=== PATIENT | female | born 1985 | race Caucasian/White ===

== ENCOUNTER → 2019-05-04 | Outpatient (CLI) | payer OTHER | LOC: M.ULTRA 05-01 10:13 | DX: M79.89 Other specified soft tissue disorders (principal); M25.521 Pain in right elbow ==

== ENCOUNTER → 2020-07-08 | Outpatient (CLI) | payer OTHER ==
[2020-07-08 11:38] LABS: ABSOLUTE BASOPHILS 0.1 thou/uL (0.0-0.2); ABSOLUTE EOSINOPHILS 0.1 thou/uL (0.0-0.7); ABSOLUTE MONOCYTES 0.4 thou/uL (0.0-1.2); ABSOLUTE NEUTROPHILS 3.5 thou/uL (1.6-8.1); BASOPHILS 1.1 %; EOSINOPHILS 2.1 %; HEMATOCRIT 41.4 % (37.0-47.0); HEMOGLOBIN 14.1 gm/dL (12.0-15.0); LYMPHOCYTES 33.3 %; MCH 31.3 pg (26.0-34.0); MCHC 33.9 g/dL (28.0-37.0); MCV 92.3 fL (80.0-100.0); MPV 7.7 fl. (7.2-11.1); NUCLEATED RBCS 0 /100WBC; PLATELET COUNT* 198 thou/uL (150-400); POLYS 57.5 %; RBC 4.49 mil/uL (4.20-5.00); RDW-CV 12.4 % (10.5-14.5); WBC 6.1 thou/uL (4.0-11.0)
[2020-07-08 11:46] LABS: CALCIUM 9.4 mg/dL (8.5-10.1); CREATININE 0.8 mg/dL (0.6-1.3); POTASSIUM 3.9 mmol/L (3.5-5.1)
[2020-07-08 11:51] LABS: TOTAL BILIRUBIN 0.4 mg/dL (<0.1-1.0); TOTAL PROTEIN 7.3 g/dL (6.4-8.2)
== END ==
LOC: M.CT 11:14
PROVIDERS: ATTEND Nurse Practitioner
DX: R19.5 Other fecal abnormalities (principal); R35.0 Frequency of micturition; R82.998 Other abnormal findings in urine; R31.29 Other microscopic hematuria

== ENCOUNTER → 2020-07-19 | Outpatient (CLI) | payer OTHER | LOC: M.ULTRA 15:50 | PROVIDERS: ATTEND Nurse Practitioner | DX: R39.15 Urgency of urination (principal); R10.2 Pelvic and perineal pain; R31.29 Other microscopic hematuria; R30.0 Dysuria; Z87.42 Personal history of other diseases of the female genital tract; R23.3 Spontaneous ecchymoses; Z86.19 Personal history of other infectious and parasitic diseases ==

== ENCOUNTER 2021-01-16 08:58 | Emergency (ER) | payer OTHER ==
[~2021-01-16] VITALS: Ht 160 cm; Wt 55.8 kg
[2021-01-16] MEDS ORDERED: [UNRECOGNIZED DRUG - OTHER] (09:09)
[2021-01-16] MEDS ORDERED: HYDROCODON-ACE1 EAC7 PO (10:03)
[2021-01-16] MEDS ORDERED: FLEXERIL PO (10:03)
[2021-01-16 10:10] VITALS: BP 100/72
== END 2021-01-16 10:11 | disposition home or self-care (01) ==
LOC: M.ERS 08:58
DX: S16.1XXA Strain of muscle, fascia and tendon at neck level, initial encounter (principal); R51.9 Headache, unspecified; R11.0 Nausea; M54.6 Pain in thoracic spine; W22.8XXA Striking against or struck by other objects, initial encounter; Y93.89 Activity, other specified; Y92.89 Other specified places as the place of occurrence of the external cause; Y99.8 Other external cause status